=== PATIENT | male | born 1975 | race Hispanic/Latino ===

== ENCOUNTER 2024-08-25 16:23 | Emergency (ER) | payer OTHER ==
[~2024-08-25] VITALS: Ht 177.8 cm; Wt 134.7 kg
[~2024-08-25 16:23] MED LIST: Aspirin PO; HYZAAR 50-12.51 EACH PO; SIMVASTATIN10 MG PO; XANAX0.25 MG PO
[2024-08-25 17:00] VITALS: PULSE 75; RESP 18; TEMP 98.1
[2024-08-25 17:41] LABS: BASOPHILS % 0.3 % (0.0-1.0); EOSINOPHILS % 0.1 % (0.0-6.0); HEMATOCRIT 44.4 % (38.2-49.6); HEMOGLOBIN 15.1 g/dL (14.0-18.0); LYMPHOCYTES # (AUTO) 1.9 (1.0-3.2); LYMPHOCYTES % 13.7 % (18.0-39.1); MEAN CORPUSCULAR HEMOGLOBIN 29.7 pg (28-32); MEAN CORPUSCULAR VOLUME 87.4 fL (81-99); MONOCYTES # (AUTO) 0.5 (0.2-0.8); MONOCYTES % 3.8 % (4.4-11.3); NEUTROPHILS % 81.6 % (38.7-80.0); PLATELET COUNT 298 x10e3/uL (140-360); RED BLOOD COUNT 5.08 x10e6/uL (4.3-5.7); WHITE BLOOD COUNT 13.47 x10e3/uL (4.8-10.8)
[2024-08-25] MEDS: ONDANSETRON HCL INJ 2MG/ML 2ML 2 MG/ML VIAL IV STA ×2 (17:43→19:34)
[2024-08-25] MEDS: SODIUM CHLORIDE 0.9% 1000ML 1,000 ML IV STA (17:43)
[2024-08-25 17:59] LABS: INR 0.86; PROTHROMBIN TIME 12.3 seconds (11.9-14.5)
[2024-08-25 18:11] LABS: ALANINE AMINOTRANSFERASE 34 IU/L (0-55); ALBUMIN 4.1 g/dL (3.5-5.0); ALKALINE PHOSPHATASE 95 IU/L (40-150); ANION GAP 16.1 mmol/L (8-16); BILIRUBIN,TOTAL 0.3 mg/dL (0.2-1.2); BLOOD UREA NITROGEN 13 mg/dL (7-26); BUN/CREATININE RATIO 15 (6-25); CALCIUM 9.4 mg/dL (8.4-10.2); CARBON DIOXIDE 23 mmol/L (22-29); CHLORIDE 101 mmol/L (98-107); CREATININE, SERUM 0.89 mg/dL (0.72-1.25); EST GLOMERULAR FILTRATION RATE 104 ML/MIN (>=60); GLUCOSE 126 mg/dL (74-118); LIPASE 40 U/L (8-78); MAGNESIUM 1.6 MG/DL (1.3-2.1); POTASSIUM 4.1 mmol/L (3.5-5.1); SODIUM 136 mmol/L (136-145); TOTAL PROTEIN 8.3 g/dL (6.5-8.1)
[2024-08-25 18:19] LABS: TROPONIN I < 0.001 ng/mL (0-0.300)
[2024-08-25] MEDS ORDERED: IOPAMIDOL 370 MG/ML 100 ML INFUS..BTL INJ ONE (18:25)
[2024-08-25] MEDS: Morphine 4mg INJECTION 4 MG/ML INJ IV STA (19:34)
[2024-08-25] MEDS ORDERED: ONDANSETRON ODT4 MG PO (19:58)
[2024-08-25] MEDS ORDERED: PANTOPRAZOLE SO40 MG PO (19:58)
[2024-08-25] MEDS: MAGNESIUM/ALUMINUM/SIMETHICONE 30 ML UDC PO STA (20:01)
[2024-08-25] MEDS: LIDOCAINE VISC 2% SOLN 15 ML UDC PO STA (20:01)
[2024-08-25] MEDS: BELLADONNA ALK/PHENOBARBITAL 5 ML UDC PO ONE (20:01)
[2024-08-25 20:31] VITALS: BP 150/98; PULSE 78; RESP 18; TEMP 98; O2SAT 98
== END 2024-08-25 20:25 | disposition home or self-care (01) ==
LOC: ER 17:26
DX: R10.13 Epigastric pain (principal); R11.2 Nausea with vomiting, unspecified
CPT/HCPCS: 36415; 71045; 74177; 80053; 83690; 83735; 84484; 85025; 85610; 93005; 99284; J2270; J2405; J2470; J7030; Q9967